=== PATIENT | male | born 2000 | race Caucasian/White ===

== ENCOUNTER 2023-05-02 08:21 | Emergency (ER) | payer MEDICAID ==
[~2023-05-02] VITALS: Ht 167.6 cm; Wt 64.0 kg
[2023-05-02 08:24] VITALS: O2SAT 97
[2023-05-02] MEDS ORDERED: KETOROLAC 60MG/2ML VIAL IM ONE (10:45)
[2023-05-02] MEDS ORDERED: CLINDAMYCIN PHOSPHATE 600MG/4ML VIAL IM ONE (10:45)
[2023-05-02] MEDS ORDERED: IBUP-1523 MT (10:47)
[2023-05-02] MEDS ORDERED: TOPUD MT (10:47)
[2023-05-02] MEDS ORDERED: CLIN-194 MT (10:47)
[2023-05-02] MEDS ORDERED: CLINDAMYCIN 600MG PREMIX 50 ML IV NR (12:00)
[2023-05-02 12:16] VITALS: BP 144/88; PULSE 99; RESP 16; TEMP 98.5
== END 2023-05-02 12:21 | disposition home or self-care (01) ==
LOC: ER 08:21
DX: L03.115 Cellulitis of right lower limb (principal); F19.10 Other psychoactive substance abuse, uncomplicated
CPT/HCPCS: 99284; 96372; J3490; J1885